=== PATIENT | male | born 1950 | race Two or more races ===

== ENCOUNTER 2020-12-15 08:31 | Emergency (ER) | payer OTHER ==
[~2020-12-15] VITALS: Ht 167.6 cm; Wt 68.3 kg
[2020-12-15 08:37] VITALS: BP 124/77
--- NOTE | 2020-12-15 08:44 | NUR ---
PT AMBULATORY TO ROOM FROM TRIAGE. CALL LIGHT WITHIN REACH. PA AT BS
--- NOTE | 2020-12-15 09:08 | NUR ---
PA AT BS. PT TOLERATED SUTURE REMOVAL WELL.
[2020-12-15] MEDS ORDERED: NEOSPORIN OINT. PKT 1 PACKET ONE (09:11)
--- NOTE | 2020-12-15 09:28 | NUR ---
Patient given discharge instructions and they have confirmed that they understand the instructions. Patient ambulatory with steady gait.
== END 2020-12-15 09:30 | disposition home or self-care (01) ==
LOC: ED 08:39
DX: S61.214D Laceration without foreign body of right ring finger without damage to nail, subsequent encounter (principal); X58.XXXD Exposure to other specified factors, subsequent encounter
CPT/HCPCS: 99282